=== PATIENT | male | born 1970 | race African-American/Black ===

== ENCOUNTER → 2017-03-12 | Outpatient (CLI) | payer OTHER ==
--- NOTE | 2017-03-12 11:40 | RADRPT ---
EXAM DATE/TIME: 03/12/2017 11:11 [facility] COMPARISON: No previous studies available for comparison. INDICATIONS : Right shoulder pain after fall. MEDICAL HISTORY : None. SURGICAL HISTORY : None. ENCOUNTER: Initial ACUITY: >1 year PAIN SCORE: 10/10 LOCATION: Right shoulder. FINDINGS: 4 views of the right shoulder reveal degenerative changes at the acromioclavicular and glenohumeral j oints. There is a prominent inferior osteophyte from the undersurface of the acromium generating narr owing of the subacromial space and no acute fracture or dislocation. Soft tissues are unremarkable. CONCLUSION: Degenerative changes with subacromial space narrowing due to spurring of the acromium which can gener ate impingement syndrome. Consider MRI of the shoulder to further evaluate for any signs of rotator c uff injury. Adalberto Raygoza Jr., MD on March 12, 2017 at 11:38 Board Certified Radiologist. This report was verified electronically.
--- NOTE | 2017-03-12 11:56 | RADRPT ---
EXAM DATE/TIME: 03/12/2017 11:12 [facility] COMPARISON: No previous studies available for comparison. INDICATIONS : Lower back pain after falling a year ago. MEDICAL HISTORY : None. SURGICAL HISTORY : None. ENCOUNTER: Initial ACUITY: >1 year PAIN SCORE: 10/10 LOCATION: Lower back. FINDINGS: There are five non-rib bearing vertebral bodies. The vertebral bodies are in normal alignment withou t evidence of subluxation or scoliosis. The disc spaces are maintained. The posterior elements are intact without evidence of spondylolysis. The pedicles are intact. Bony mineralization is normal. No fracture is identified. CONCLUSION: Negative for acute compression. Disc space heights are well-maintained. Arnulfo Lara MD FACR on March 12, 2017 at 11:53 Board Certified Radiologist. This report was verified electronically.
== END ==
LOC: HRAD 10:55
PROVIDERS: ATTEND Family Medicine
DX: M25.511 Pain in right shoulder (principal); M51.26 Other intervertebral disc displacement, lumbar region
CPT/HCPCS: 72110; 73030

== ENCOUNTER → 2017-04-23 | Outpatient (CLI) | payer OTHER ==
--- NOTE | 2017-04-23 12:33 | RADRPT ---
EXAM DATE/TIME: 04/23/2017 12:20 [facility] COMPARISON: No previous studies available for comparison. INDICATIONS : No known injury. Feels pops in wrist while moving it. Pain in the lateral side. MEDICAL HISTORY : None. SURGICAL HISTORY : None. ENCOUNTER: Initial ACUITY: 1 month PAIN SCORE: 3/10 LOCATION: Left Wrist FINDINGS: Three view examination of the left wrist demonstrates no soft tissue swelling, dislocation, or fractu re. The carpal bones are in normal alignment. The joint spaces are maintained. Bony mineralization is normal. CONCLUSION: No acute disease. Car Walker MD on April 23, 2017 at 12:31 Board Certified Radiologist. This report was verified electronically.
--- NOTE | 2017-04-23 12:33 | RADRPT ---
EXAM DATE/TIME: 04/23/2017 12:17 [facility] COMPARISON: SHOULDER RIGHT COMPLETE (>2VWS), March 12, 2017, 11:11. INDICATIONS : No known injury. Pain while lifting arm. Patient feels as if he has to pop his shoulder back in place from time to time. MEDICAL HISTORY : None. SURGICAL HISTORY : None. ENCOUNTER: Initial ACUITY: 1 month PAIN SCORE: 4/10 LOCATION: Left Shoulder FINDINGS: Multiple view examination of the left shoulder demonstrates no evidence of fracture or dislocation. The glenohumeral and acromioclavicular joints are maintained. There is normal range of motion betwee n internal and external rotation. Bony mineralization is normal. There is a prominent osteophyte off the undersurface of the acromion directed medially. CONCLUSION: Acromial osteophyte formation as above. Car Walker MD on April 23, 2017 at 12:31 Board Certified Radiologist. This report was verified electronically.
== END ==
LOC: HRAD 12:04
PROVIDERS: ATTEND Family Medicine
DX: M25.532 Pain in left wrist (principal); M25.512 Pain in left shoulder
CPT/HCPCS: 73030; 73110

== ENCOUNTER → 2017-07-11 | Outpatient (CLI) | payer OTHER ==
--- NOTE | 2017-07-11 11:12 | RADRPT ---
EXAM DATE/TIME: 07/11/2017 10:29 [facility] COMPARISON: No previous studies available for comparison. INDICATIONS : Pain. Difficulty ambulating. No known injury. MEDICAL HISTORY : None. SURGICAL HISTORY : Knee surgery. ENCOUNTER: Subsequent ACUITY: 4-6 months PAIN SCORE: 4/10 LOCATION: mid back. TECHNIQUE: Multiplanar multisequence MRI of the thoracic spine was performed. FINDINGS: VERTEBRA: Normal vertebral body height. Homogeneous marrow signal. Diffuse disc desiccation from T2 to T11. ALIGNMENT: Normal. CORD: Normal position and configuration. T1-T2: Normal. T2-T3: The thecal sac has a normal diameter. No evidence of disc bulge or protrusion. T3-T4: The thecal sac has a normal diameter. No evidence of disc bulge or protrusion. T4-T5: The thecal sac has a normal diameter. No evidence of disc bulge or protrusion. T5-T6: The thecal sac has a normal diameter. No evidence of disc bulge or protrusion. T6-T7: Mild diffuse disc bulge. Effacement of the anterior thecal sac. Central canal measures up to 7 mm. T7-T8: Mild diffuse disc bulge. Effacement of the anterior thecal sac. Central canal measures up to 8 mm. T8-T9: Mild diffuse disc bulge. Effacement of the anterior thecal sac. Central canal measures up to 8 mm. T9-T10: Mild diffuse disc bulge. Effacement of the anterior thecal sac. Central canal measures up t o 7 mm. T10-T11: The thecal sac has a normal diameter. No evidence of disc bulge or protrusion. T11-T12: The thecal sac has a normal diameter. No evidence of disc bulge or protrusion. T12-L1: The thecal sac has a normal diameter. No evidence of disc bulge or protrusion. CONCLUSION: 1. Degenerative spondylosis of the thoracic spine with multilevel desiccated discs and disc bulge mos t prominently at T6-10 resulting in [id number] spinal canal narrowing. Central canal measures 7 -8 mm at these levels. Casper Ayala MD on July 11, 2017 at 11:01 Board Certified Radiologist. This report was verified electronically.
--- NOTE | 2017-07-11 11:13 | RADRPT ---
EXAM DATE/TIME: 07/11/2017 10:29 [facility] COMPARISON: No previous studies available for comparison. INDICATIONS : Pain. Difficulty ambulating. No known injury. MEDICAL HISTORY : None. SURGICAL HISTORY : Knee surgery. ENCOUNTER: Subsequent ACUITY: 4-6 months PAIN SCORE: 4/10 LOCATION: back. TECHNIQUE: Multiplanar multisequence MRI of the lumbar spine was performed without contrast. FINDINGS: The most caudal appearing lumbar vertebra is numbered as L5. VERTEBRAE: Homogeneous signal. Normal alignment. CONUS: Normal level and configuration. There is limited visualization the T10/T11 level. There is a small disc bulge at this level. This israel l be assessed by MRI of the thoracic spine. T12-L1: The thecal sac has a normal diameter. No evidence of disc bulge or protrusion. The neural foramina are patent bilaterally. L1-L2: The thecal sac has a normal diameter. No evidence of disc bulge or protrusion. The neural foramina are patent bilaterally. L2-L3: The thecal sac has a normal diameter. No evidence of disc bulge or protrusion. The neural foramina are patent bilaterally. L3-L4: The thecal sac has a normal diameter. No evidence of disc bulge or protrusion. The neural foramina are patent bilaterally. L4-L5: The thecal sac has a normal diameter. No evidence of disc bulge or protrusion. The neural foramina are patent bilaterally. L5-S1: There is desiccation of the disc. There is central disc protrusion. This effaces the ventral thecal s beni. There is disc protrusion evident touching the left S1 nerve root and possibly the left L5 nerve root. The residual thecal space is adequate. The foramina on the right is adequate. There is mild fac et arthritis bilaterally. CONCLUSION: 1. Central disc protrusion at L5-S1. There is disc protrusion evident just touching the left L5 and S 1 nerve roots at this level. 2. Mild facet arthritis at L5/S1. Glen Lara MD on July 11, 2017 at 11:09 Board Certified Radiologist. This report was verified electronically.
--- NOTE | 2017-07-11 11:55 | RADRPT ---
EXAM DATE/TIME: 07/11/2017 10:29 [facility] COMPARISON: No previous studies available for comparison. INDICATIONS : Pain. Difficulty ambulating. No known injury. MEDICAL HISTORY : None. SURGICAL HISTORY : Knee surgery. ENCOUNTER: Subsequent ACUITY: 4-6 months PAIN SCORE: 3/10 LOCATION: neck. TECHNIQUE: Multiplanar, multisequence MRI examination of the cervical spine was performed. FINDINGS: VERTEBRAE: Normal vertebral body height. Homogeneous marrow signal. ALIGNMENT: No evidence of subluxation. CORD: Normal configuration and signal. POST FOSSA: The cerebellar tonsils are normal in position. C2-C3: The thecal sac has a normal configuration. There is no evidence of disc herniation or spinal canal s tenosis. The neural foramina are patent bilaterally. C3-C4: The thecal sac has a normal configuration. There is no evidence of disc herniation or spinal canal s tenosis. The neural foramina are patent bilaterally. C4-C5: The thecal sac has a normal configuration. There is no evidence of disc herniation or spinal canal s tenosis. The neural foramina are patent bilaterally. C5-C6: The thecal sac has a normal configuration. There is no evidence of disc herniation or spinal canal s tenosis. The neural foramina are patent bilaterally. C6-C7: The thecal sac has a normal configuration. There is no evidence of disc herniation or spinal canal s tenosis. The neural foramina are patent bilaterally. C7-T1: The thecal sac has a normal configuration. There is no evidence of disc herniation or spinal canal s tenosis. The neural foramina are patent bilaterally. CONCLUSION: Normal examination. Dave Hubbard MD on July 11, 2017 at 11:52 Board Certified Radiologist. This report was verified electronically.
== END ==
LOC: HRAD 09:52
PROVIDERS: ATTEND Family Medicine
DX: M51.26 Other intervertebral disc displacement, lumbar region (principal); M54.2 Cervicalgia; M54.6 Pain in thoracic spine
CPT/HCPCS: 72141; 72146; 72148

== ENCOUNTER → 2017-07-13 | Outpatient (CLI) | payer OTHER ==
--- NOTE | 2017-07-13 09:01 | RADRPT ---
EXAM DATE/TIME: 07/13/2017 07:46 [facility] COMPARISON: SHOULDER RIGHT COMPLETE (>2VWS), March 12, 2017, 11:11. SHOULDER LEFT COMPLETE (>2VWS), March 312016, 12:17. INDICATIONS : Bilateral shoulder pain. MEDICAL HISTORY : None. SURGICAL HISTORY : Knee surgery. ENCOUNTER: Initial ACUITY: 4-6 months PAIN SCORE: 3/10 LOCATION: Bilateral shoulder TECHNIQUE: Multiplanar, multisequence MRI examination was performed without contrast. FINDINGS: ROTATOR CUFF: There is a full-thickness tear of the rotator cuff. LABRUM: Labrum is within normal limits. MARROW/CARTILAGE: Bone marrow signal is homogeneous. There are subchondral cysts along the superior humeral head charac teristic of degenerative type changes. There is thinning of the articulating cartilage. OTHER: Mild degenerative changes involving the a.c. joint. CONCLUSION: Full-thickness tear of the rotator cuff. Mild to moderate primary degenerative type changes. Varinder Knight MD on July 13, 2017 at 8:55 Board Certified Radiologist. This report was verified electronically.
--- NOTE | 2017-07-13 09:03 | RADRPT ---
EXAM DATE/TIME: 07/13/2017 08:05 [facility] COMPARISON: SHOULDER LEFT COMPLETE (>2VWS), April 23, 2017, 12:17. INDICATIONS : Bilateral shoulder pain. MEDICAL HISTORY : None. SURGICAL HISTORY : Knee surgery. ENCOUNTER: Initial ACUITY: 4-6 months PAIN SCORE: 3/10 LOCATION: Bilateral shoulder TECHNIQUE: Multiplanar, multisequence MRI examination was performed without contrast. FINDINGS: ROTATOR CUFF: There is some increased signal in the supraspinatus tendon near its insertion suggestive of tendinopa thy versus tendinosis. No definite full-thickness tear is seen. No significant fluid is seen in the s ubacromial or subdeltoid bursa. LABRUM: Labrum is within normal limits. MARROW/CARTILAGE: Bone marrow signal is homogeneous. There is some mild degenerative changes with a few subchondral cys ts. There is some thinning of the articulating cartilage. OTHER: Mild degenerative changes the a.c. joint. CONCLUSION: 1. Tendinopathy versus tendinosis of the supraspinatus tendon near its insertion. 2. Mild primary degenerative changes at the shoulder joint. Varinder Knight MD on July 13, 2017 at 8:58 Board Certified Radiologist. This report was verified electronically.
== END ==
LOC: HRAD 06:46
PROVIDERS: ATTEND Family Medicine
DX: M25.512 Pain in left shoulder (principal); M25.511 Pain in right shoulder
CPT/HCPCS: 73221

== ENCOUNTER → 2017-07-17 | Outpatient (CLI) | payer OTHER ==
--- NOTE | 2017-07-17 09:05 | RADRPT ---
EXAM DATE/TIME: 07/17/2017 07:38 [facility] COMPARISON: No previous studies available for comparison. INDICATIONS : Bilateral wrist pain. MEDICAL HISTORY : None. SURGICAL HISTORY : knee surgery ENCOUNTER: Initial ACUITY: 4-6 months PAIN SCORE: 3/10 LOCATION: Bilateral wrsit TECHNIQUE: Multiplanar multisequence MRI examination of the wrist was performed without contrast. FINDINGS: INTRISIC LIGAMENTS: The scapholunate and lunotriquetral ligaments are intact. TRIANGULAR FIBROCARTILAGE: The triangular fibrocartilage complex is intact. TENDONS: All of the visualized tendons are intact. MARROW/CARTILAGE: Bone marrow signal is homogeneous. Articular cartilage is within normal limits. OTHER: No evidence of joint effusion. Ulnar nerve and median nerve are intact. CONCLUSION: Normal examination. Aaron Guillen MD on July 17, 2017 at 9:02 Board Certified Radiologist. This report was verified electronically.
--- NOTE | 2017-07-17 09:07 | RADRPT ---
EXAM DATE/TIME: 07/17/2017 08:00 [facility] COMPARISON: No previous studies available for comparison. INDICATIONS : Bilateral wrist pain. MEDICAL HISTORY : None. SURGICAL HISTORY : knee surgery ENCOUNTER: Initial ACUITY: 4-6 months PAIN SCORE: 3/10 LOCATION: Bilateral wrist TECHNIQUE: Multiplanar multisequence MRI examination of the wrist was performed without contrast. FINDINGS: INTRISIC LIGAMENTS: The scapholunate and lunotriquetral ligaments are intact. TRIANGULAR FIBROCARTILAGE: The triangular fibrocartilage complex is intact. TENDONS: All of the visualized tendons are intact. MARROW/CARTILAGE: Bone marrow signal is homogeneous. Articular cartilage is within normal limits. OTHER: No evidence of joint effusion. Ulnar nerve and median nerve are intact. CONCLUSION: Normal examination. Aaron Guillen MD on July 17, 2017 at 9:04 Board Certified Radiologist. This report was verified electronically.
== END ==
LOC: HRAD 07:07
PROVIDERS: ATTEND Family Medicine
DX: M25.532 Pain in left wrist (principal); M25.531 Pain in right wrist
CPT/HCPCS: 73221

== ENCOUNTER → 2017-11-06 | Outpatient (CLI) | payer OTHER ==
--- NOTE | 2017-11-06 08:15 | RADRPT ---
EXAM DATE/TIME: 11/06/2017 07:42 [facility] COMPARISON: MRI CERVICAL SPINE W/O CONTRAST, July 11, 2017, 10:29. INDICATIONS : Neck pain but with improving ambulation. MEDICAL HISTORY : None. SURGICAL HISTORY : Bilateral knee ENCOUNTER: [facility] ACUITY: > 1 year PAIN SCORE: 3/10 LOCATION: neck TECHNIQUE: Multiplanar, multisequence MRI examination of the cervical spine was performed. FINDINGS: Sagittal images demonstrate normal vertebral body alignment and curvature. No focal areas of marrow r eplacement are identified. The craniocervical junction appears normal. The cord itself is normal in c aliber and signal intensity. Axial images were performed from C2-3 through C7-T1. C2-C3: No significant abnormalities identified. C3-C4: No significant abnormalities identified. C4-C5: There is mild diffuse annular bulge of the disc. The neural foramina are clear bilaterally. There is no significant spinal canal stenosis. C5-C6: No significant abnormalities identified. C6-C7: No significant abnormalities identified. C7-T1: No significant abnormalities identified. CONCLUSION: 1. Minimal bulge C4-C5. No evidence of disc protrusion or spinal canal stenosis. Rogelio Valenzuela MD on November 06, 2017 at 8:09 Board Certified Radiologist. This report was verified electronically.
== END ==
LOC: HRAD 07:03
DX: M50.90 Cervical disc disorder, unspecified, unspecified cervical region (principal)
CPT/HCPCS: 72141